=== PATIENT | female | born 1985 | race Two or more races ===

== ENCOUNTER 2016-07-20 23:57 | Emergency (ER) | payer OTHER ==
--- NOTE | ~2016-07-20 | CT71 ---
[facility] A Service of [facility] RADIOLOGY TEXT RESULTS PATIENT: ANDRZEJ GURROLA LOCATION: [facility] : 85 UNIT #: [id number] AGE: [address]: Quan Ortiz MD SEX: F ORDER DR: [id number] [address] [address] [id number] E MR#: [id number] #: [id number] NAME: ANDRZEJ GURROLA : 1985 SEX: F STUDY DATE/TIME: 07/21/2016 1:47 UNIT: JOSE R ROOM: STUDY DESCRIPTION: CT Head Wo Contrast Attending Physician: Ilia Ortiz M.D. Ordering Physician: Ilia Ortiz M.D. Primary Care Physician: Linus Viveros M.D. MEDICAL IMAGING REPORT This report is preliminary unless electronic signature is present EXAM Noncontrast CT head DATE 07/21/2016 HISTORY Diffuse headache for 4 days. Right hand numbness. COMPARISON None. TECHNIQUE This CT exam was performed with one or more of the following radiation dose reduction techniques: automatic exposure control, adjustment of mA and/or kV according to patient size, and iterative reconstruction. FINDINGS No acute intracranial hemorrhage, mass lesion, or mass effect, or midline shift is seen. There is no convincing CT evidence of acute or evolving infarct at this time. Ventricular configuration is within normal limits. No acute calvarial abnormality is seen. Minimal left posterior ethmoid sinus mucosal thickening in the remainder of the paranasal sinuses are otherwise clear. Mastoid air cells are clear. IMPRESSION 1. No acute intracranial findings. [facility] A Service of [facility] RADIOLOGY TEXT RESULTS PATIENT: ANDRZEJ GURROLA LOCATION: [facility] : 85 UNIT #: [id number] AGE: [address]: Quan Ortiz MD SEX: F ORDER DR: Dictated by... Tayla Shine M.D. THIS IS AN ELECTRONICALLY VERIFIED REPORT Tayla Shine M.D. at 07/21/2016 10:02 PM HERMELINDO/chanda TD: 07/21/2016 08:03 JOB #: [id number] MEDICAL IMAGING REPORT Page 1 of 1 COPY
== END 2016-07-21 02:09 | disposition home or self-care (01) ==
LOC: CED 23:57
DX: G44.209 Tension-type headache, unspecified, not intractable (principal); M54.12 Radiculopathy, cervical region; K21.9 Gastro-esophageal reflux disease without esophagitis
CPT/HCPCS: 70450; 84703; 99284